=== PATIENT | female | born 1960 | race Caucasian/White ===

== ENCOUNTER 2017-07-19 13:15 | Inpatient (IN) | payer OTHER ==
--- NOTE | 2017-07-19 15:25 | EDPHY ---
HPI/HX/ROS/PE/MDM Narrative: CHIEF COMPLAINT: Headache, left-sided facial numbness HISTORY OF PRESENT ILLNESS: The patient is a 56 y/o female with a history of gastritis complaining of a headache, dizziness, and left-sided facial numbness, onset this morning when she woke up. Her left cheek, tongue, and lip felt numb but her extremities did not. Denies speech difficulties. She also had a headache in her forehead radiating to her occiput as well as mild lateral neck pain. Denies recent history of trauma, massages, or chiropractic manipulations. Per her friend, the patient thought she bit her tongue twice while sleeping last night. Denies urinary incontinence last night or history of seizures. Due to these symptoms she saw her PCP, GRETCHEN Thompson at [facility], who sent the patient to the emergency department. Currently she has a headache, facial numbness, and mild left lower extemity foot weakness. Denies taking medications for hypertension. Denies history of asthma or COPD. Denies history of PE or DVT. No fever, chills, chest pain, shortness of breath, palpitations, vomiting, diarrhea, urinary complaints, lightheadedness. A aerial photograph interpreter was used during my examination. REVIEW OF SYSTEMS: Aside from elements discussed in the HPI, a comprehensive 10-point review of systems was reviewed and is negative. PAST MEDICAL HISTORY: Gastritis, neck surgery for infected glands in [place] SOCIAL HISTORY: Friend at bedside, lives in [place], retired, stopped smoking 4 years ago VITAL SIGNS: Reviewed by me GENERAL: Well-developed, well-nourished, resting comfortably in no respiratory distress. Pleasant, conversant. Normal fluid speech. HEENT: Atraumatic. Eyes: No icterus, no injection. PERRL, EOMI. Mouth: bruising on left side of tongue, moist mucous membranes. No erythema or lesions. Neck: supple with no adenopathy. LUNGS: Clear to auscultation bilaterally, no wheezes, rhonchi or rales. CARDIAC: Regular rate and rhythm, no rubs, murmurs or gallops. ABDOMEN: Soft, nontender, nondistended, bowel sounds normal. BACK: No CVA tenderness. EXTREMITIES: No trauma. No edema. Range of motion is normal throughout. NEURO: Alert and oriented. Left-sided facial weakness on cheek and lip. Forehead is spared. Left hip flexor weakness, otherwise motor strength 5 over 5 in all other major muscle groups. Sensation diminished on left side of facte ( cheek and jawline.) SKIN: Warm and dry, no rash. PSYCHIATRIC: Normal mentation, no agitation. Portions of this note were transcribed by a behavioral medical director. I personally performed a history, physical exam, medical decision making, and confirmed accuracy of information the transcribed note. ED Course: The patient is a 56 y/o female with a history of gastritis presenting with a headache in her forehead and radiating into her occiput, dizziness, and left- sided facial numbness, onset this morning when she woke up. On exam she has left-sided facial weakness and numbness which spares her forehead, bruising on the left side of her tongue, and left hip flexor weakness. EKG, head CT, angio head and neck CT, and labs ordered. 1558: 12-LEAD EKG: Please see the full report in [facility]. My interpretation: Normal sinus rhythm with a rate of 72 1648: I reviewed patient's CT; no hemorrhage identified. Radiologist reading still pending. 1704: Spoke with Dr. Santoro, radiologist, he reports there are no intracranial abnormalities. 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 Patient will be admitted to rule out a stroke. Brain MRI ordered. 1720: Consulted with hospitalist service, Dr. Saldana accepts admission of this patient. 1730: Reassessed patient and discussed plan for admission; she is comfortable with this plan. MDM: Differential diagnoses the patient's presenting complaints was considered including but not limited to intracranial injury, TIA, ischemic cerebrovascular accident, hemorrhagic cerebrovascular accident, hypoglycemia, complex migraine, metastases, tumor, seizure, or electrolyte abnormality - Data Points Imaging Results: Imaging Impressions Head CT 07/19/17 15:47 Impression: 1. No significant intracranial abnormality seen. If symptoms worsen, additional imaging may be necessary. Findings discussed with Shari Hinojosa MD at 17:04 hour, 07/19/2017. Head CTA 07/19/17 15:47 Impression: 1. Normal CT angiogram of the neck. 2. Normal CT angiogram of the [place], as detailed above. 3. 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 Note: All calculations were performed using NASCET criteria. Findings discussed with Shari Hinojosa MD at 17:05 hour, 07/19/2017. Neck CTA 07/19/17 15:[address]: [address] angiogram of the neck. 2. Normal CT angiogram of the [place], as detailed above. 3. 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 Note: All calculations were performed using NASCET criteria. Findings discussed with Shari Hinojosa MD at 17:05 hour, 07/19/2017. Imaging: Discussed imaging studies w/ score caller Radiologist, I viewed and interpreted images myself Laboratory Results: Laboratory Results 07/19/17 15:48 07/19/17 15:48 07/19/17 07/19/17 07/19/17 15:48 15:48 15:48 WBC 11.28 10^3/uL H 10^3/uL (3.80-9.50) RBC 5.17 10^6/uL 10^6/uL (4.18-5.33) Hgb 13.9 g/dL g/dL (12.6-16.3) Hct 42.6 % % (38.0-47.0) MCV 82.4 fL fL (81.5-99.8) MCH 26.9 pg L pg (27.9-34.1) MCHC 32.6 g/dL g/dL (32.4-36.7) RDW 13.5 % % (11.5-15.2) Plt Count 307 10^3/uL 10^3/uL (150-400) MPV 11.0 fL fL (8.7-11.7) Neut % (Auto) 75.8 % H % (39.3-74.2) Lymph % (Auto) 17.7 % % (15.0-45.0) Humphreys % (Auto) 4.2 % L % (4.5-13.0) Eos % (Auto) 1.6 % % (0.6-7.6) Baso % (Auto) 0.3 % % (0.3-1.7) Nucleat RBC Rel Count 0.0 % % (0.0-0.2) Absolute Neuts (auto) 8.55 10^3/uL H 10^3/uL (1.70-6.50) Absolute Lymphs (auto) 2.00 10^3/uL 10^3/uL (1.00-3.00) Absolute Monos (auto) 0.47 10^3/uL 10^3/uL (0.30-0.80) Absolute Eos (auto) 0.18 10^3/uL 10^3/uL (0.03-0.40) Absolute Basos (auto) 0.03 10^3/uL 10^3/uL (0.02-0.10) Absolute Nucleated RBC 0.00 10^3/uL 10^3/uL (0-0.01) Immature Gran % 0.4 % % (0.0-1.1) Immature Gran # 0.05 10^3/uL 10^3/uL (0.00-0.10) PT 14.3 SEC SEC (12.0-15.0) INR 1.09 (0.83-1.16) Sodium 142 mEq/L mEq/L (135-145) Potassium 4.2 mEq/L mEq/L (3.5-5.2) Chloride 104 mEq/L mEq/L (97-110) Carbon Dioxide 27 mEq/l mEq/l (22-31) Anion Gap 11 mEq/L mEq/L (8-16) BUN 14 mg/dL mg/dL (7-23) Creatinine 0.5 mg/dL L mg/dL (0.6-1.0) Estimated GFR > 60 Glucose 96 mg/dL mg/dL (70-100) Calcium 9.4 mg/dL mg/dL (8.5-10.4) Troponin I < 0.012 ng/mL ng/mL (0.000-0.034) General Time Seen by Provider: 07/19/17 15:24 Initial Vital Signs: Initial Vital Signs Temperature (C) 36.8 C 07/19/17 13:20 Heart Rate 83 07/19/17 13:20 Respiratory Rate 18 07/19/17 13:20 Blood Pressure 164/111 H 07/19/17 13:20 O2 Sat (%) 91 L 07/19/17 13:20 O2 Delivery Mode Nasal Cannula O2 (L/minute) 2 Allergies/Adverse Reactions: No Known Allergies Allergy (Unverified 07/19/17 13:18) Home Medications: Medication Instructions Recorded Aspirin [Aspirin 81mg (*)] 81 mg PO DAILY #30 tab.chew 07/21/17 Atorvastatin Calcium [Lipitor 40 40 mg PO DAILY #30 tab 07/21/17 mg (*)] Departure - Departure Disposition: [facility] Inpatient Acute Clinical Impression: TIA (transient ischemic attack) Qualifiers: Transient cerebral ischemia type: other Qualified Code(s): G45.8 - Other transient cerebral ischemic attacks and related syndromes Condition: Fair Report Scribed for: Shari Hinojosa Report Scribed by: Dea Garay Date of Report: 07/19/17 Time of Report: 15:25
--- NOTE | 2017-07-19 16:00 | CPEKG ---
Heart Rate: 72 RR Interval: 833 P-R Interval: 204 QRSD Interval: 84 QT Interval: 404 QTC Interval: 443 P [place]: 33 QRS [place]: -9 T Wave [place]: 6 EKG Severity - ABNORMAL ECG - EKG Impression: SINUS RHYTHM EKG Impression: PROBABLE LEFT ATRIAL ABNORMALITY EKG Impression: LEFT VENTRICULAR HYPERTROPHY Electronically Signed By: Carrington Bui 23-Jul-2017 12:06:19
[2017-07-19 16:02] LABS: PLATELET COUNT 307 10^3/uL (150-400)
[2017-07-19 16:07] LABS: INR 1.09 (0.83-1.16); PROTIME(PATIENT) 14.3 SEC (12.0-15.0)
[2017-07-19] MEDS ORDERED: IOPAMIDOL (ISOVUE 370) 100 ML BTL IV ONE (16:17)
[2017-07-19] MEDS ORDERED: ACETAMINOPHEN 325 MG TAB PO PRN (17:23)
[2017-07-19] MEDS ORDERED: ONDANSETRON 4 MG/2 ML VIAL IVP PRN (17:23)
[2017-07-19] MEDS ORDERED: ONDANSETRON DISINTEGRATING 4 MG TAB PO PRN (17:23)
[2017-07-19] MEDS ORDERED: LABETALOL HCL 5 MG/ML 20 ML MDV IVP PRN (18:54)
[2017-07-19] MEDS ORDERED: CALCIUM CARBONATE 500 MG CHEWABLE TAB PO PRN (19:15)
[2017-07-19] MEDS ORDERED: D5W NS 1,000 ML IV SCH (19:30)
--- NOTE | 2017-07-19 20:08 | GHP ---
[f rep st] HISTORY AND PHYSICAL DATE OF ADMISSION: 07/19/2017 CHIEF COMPLAINT: Headache, left facial numbness and droop. History and physical was done. Interpretation by her friend. I offered a child study team director, but she declined. HISTORY OF PRESENT ILLNESS: A 56-year-old female with history of gastritis, complaining of headache, dizziness, and left-sided facial numbness. She was in her normal state of health last night. She woke up in the middle night, biting her tongue. When she woke up this morning, her left cheek, tongue and lip felt numb. She denied any slurred speech. She also had a headache on the left side of her forehead that radiated to the back. Denies any recent trauma. Denied urinary incontinence. No history of seizures. Also reports a cough for 3 months. No fevers, chills, or sweats. Along with that, she has pain on the left side of her chest, along the ribs. Denies trauma. She went to her PCP, Dr. Leyva at the [facility], who sent her to the ER. REVIEW OF SYSTEMS: I completed a 10-point review of systems. Negative, except as noted in HPI. PAST MEDICAL HISTORY: Gastritis. PAST SURGICAL HISTORY: Neck surgery for a gland in [place] 18 years ago. SOCIAL HISTORY: Lives in [place] with a friend. Cleans houses for a living. Smoked 10 years, a pack a day. Quit 4 years ago. Occasional alcohol. No illicits. FAMILY HISTORY: A brother with an NH. PHYSICAL EXAMINATION: VITAL SIGNS: Temperature 36.8, blood pressure 164/111 at admission, now 151/98, heart rate 70s, respiration 20, 91% on 3 L. GENERAL: She is obese, lying in bed, no acute distress, fatigued HEENT: PERRLA. EOMI. Oropharynx clear. CV: Regular rate, rhythm. No murmurs, gallops, rubs. LUNGS: Clear. ABDOMEN: Soft. MUSCULOSKELETAL: Tenderness over left chest and back. Tenderness along left flank and ribs. 4/5 upper extremity strength. Hip flexion decreased on the left. Decreased sensation to touch, left thigh and lower leg. NEURO: Left facial droop, numbness, left forehead, face. PSYCH: Alert and oriented x3. LABS: Sodium 142, potassium 4.2, chloride 104, carbon dioxide 27, creatinine 0.5, glucose 60, calcium 9.4, troponin less than 0.012. EKG is personally reviewed by me. Normal sinus rhythm. LVH. INR is 1, PT is 14. WBC 11, hemoglobin 13, hematocrit 42, platelets 307. Head CT: No intracranial abnormalities. Head/neck CTA. Normal angiogram of head and neck. Brain MRI pending. ASSESSMENT AND PLAN: 1. Left facial droop, numbness: concern for acute stroke, transient ischemic attack. No evidence of arrhythmia. CT head, CTA negative. MRI pending. Will monitor on telemetry. Check A1c, lipids. Neuro consult in the morning. Physical therapy, occupational therapy, speech therapy. Will need an anti- platelet before discharge. 2. Was hypertensive in the emergency room, which is not in her medical history. Will monitor overnight. Allow for permissive hypertension, unless the systolic blood pressure is greater than 220. 3. Accelerated hypertension: Again, not a known history. Will monitor, treat as stated above. 4. History of tobacco abuse, quit 4 years ago. 5. Mild leukocytosis: stress inflammation. Denies fevers or infectious symptoms. 6. Diet. Nothing per oral until speech evaluation. 7. Generalized intravenous fluids. 8. Disposition. Patient warrants observation admission, given acute neuro findings concerning for transient ischemic attack versus stroke, warranting neuro checks, telemetry, and neurology consultation. /[id number]/MODL MTDD
[2017-07-19] MEDS: PANTOPRAZOLE SODIUM 40 MG VIAL IVP SCH (21:45)
[2017-07-20] MEDS ORDERED: ACETAMINOPHEN 325 MG SUPP PR PRN (05:14)
--- NOTE | 2017-07-20 10:20 | GCON ---
[f rep st] CONSULTATION NEUROLOGIC CONSULTATION REFERRING PHYSICIAN: Radha Saldana MD CHIEF COMPLAINT: Headache and numbness in the left face and weakness of the left hand, HISTORY OF PRESENT ILLNESS: The patient is a 56-year-old woman who I am asked to see in neurologic c onsultation regarding a constellation of neurologic symptoms which began 2 nights ago predominantly. She says that she had awakened and had bitten on her tongue. When she woke yesterday morning, her l eft cheek and tongue felt a little bit numb. She denied any definite slurring of speech, but she emp hasizes today that everything simply seems slow. She also says she has a 10 out of a 10 headache whi ch is mainly on the right side of the head at this point. She also had previously described headache on the left side of her forehead radiating toward her back. She does not historically have prominen t headache issues. She says that she has had intermittent episodes about once a month where she will feel palpitations and these can be associated with a pain in the lower back which can radiate up tow jagdish the upper back or neck region. She has never really been sure what causes that. She will someti mes feel the heart racing or palpitations that might last perhaps a minute or so. She does not have any history of seizure or stroke or migraine or focal neurologic events. Since [facility] the [facility], she continues to feel she has abnormal symptoms on the left side. She came to the emergency room at the recommendation of her primary care provider yesterday. She has experienced no other new sympt oms but definitely does not feel she is back to normal. The workup so far has included a negative he ad CT, relatively unremarkable brain MRI except for nonspecific white matter change and completely pa tent intracranial and extracranial cerebral vasculature. When she was seen yesterday, she seemed to have a little bit of weakness in the left upper extremity and some decreased sensation to touch over the left leg. She was oriented. She was also thought to have a little left facial droop and numbnes s in the left face. PAST MEDICAL HISTORY: Notable for some gastritis. FAMILY HISTORY: Noncontributory. 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 Ten pack-year smoking history, but quit 4 years ago. Occasional alcohol. No illicit drug use. MEDICATIONS: The home medications were none. Here in the hospital, she is currently on Protonix, Zo raul as needed, labetalol as needed, IV fluids, and Tylenol. ALLERGIES: No drug allergies. REVIEW OF SYSTEMS: A 10-point review of systems was completed and unremarkable except for that noted above. She has not really had any fever, chills, nausea, vomiting, or diarrhea. Current. PHYSICAL EXAMINATION: VITAL SIGNS: Blood pressure is 121/77, pulse is 67, respirations 19, temperatu re 36.7. GENERAL: She is well developed, lying in the bed in no acute distress, but appears anxious . HEENT: Pupils are 3 mm and reactive. Extraocular movements are intact. No visual field loss. Th ere seems to be mild facial asymmetry with perhaps a little droop on the left but when I test her, it is relatively symmetric. No dysarthria. Everything she does is relatively slow and deliberate, and everything is a little slower on the left side than the right. She occasionally pauses to get some of her words out. She is being evaluated with a trained science interpreter assisting me. She is fu lly oriented and has good concentration and attention. NECK: Supple with no bruits or masses. CARD IAC: Regular rate and rhythm. No murmur. NEUROLOGIC: The facial sensation is perhaps a little dimi nished on the left compared to the right and motor exam reveals no definitive asymmetry of muscle pow er, but the rapid alternating movements are definitely slowed in the left hand relative to the right and in the left lower extremity it is perhaps a little weaker, but also quite subtle. Sensation is d iminished for cold perception on the left compared to the right. She can perform [id number] very s lowly on both sides with no ataxia. Reflexes 1+ and symmetric. STUDIES: Diagnostic studies are as outlined above for imaging. LDL cholesterol is 111. White count 11,000, hematocrit is 42%, platelets 307,000. Echocardiogram has been performed and is pending. Her NIH Stroke Scale would currently be 3. IMPRESSION: Total unit time of 70 minutes. The patient has clinical symptoms that would suggest rig ht hemisphere pathology producing left face, arm and leg sensory and motor changes, and generalized b radykinesia but the CT and MRI do not show definite, identifiable acute ischemia. It is possible she has had a very small stroke with a false negative MRI, but that is rather unusual. Alternatively, t his phenomena could be related to complex migraine scenario where the severe headache is a reflection of that, but her complaint of 10/10 pain is a little bit inconsistent with her general clinical appe arance. Further differential consideration would be seizure with postictal left-sided symptoms, but the story does not fit very well for that. It is hard to know what to make of the biting of her tong ue the other night. In any case, she also mentions having periods of palpitations and some back pain , so continuing cardiac monitoring seems appropriate for now. There is no evidence of large or small vessel stenosis on the angiogram, although the microvasculature is probably affected based on the MR I showing some white matter changes. PLAN: Short-term plan would be daily aspirin 81 mg daily, starting Lipitor 40 mg daily and monitorin g her heart. Unless she has complete resolution back to normal today, I would recommend 1 more day o f hospitalization for further cardiac monitoring and then set up for an outpatient Holter monitor to further look for any arrhythmias given the lack of diagnosis at this point for why this might have oc curred and also follow up on the results of echocardiogram. All of this was explained to the patient via the special events manager and she seems comfortable with this approach. /[id number]/MODL
[2017-07-20] MEDS: PANTOPRAZOLE SODIUM 40 MG VIAL IVP SCH (10:21)
[2017-07-20] MEDS: ASPIRIN 81 MG CHEWABLE TAB PO SCH (10:26)
--- NOTE | 2017-07-20 10:26 | ECHO ---
[email or web address] [address] [address] Main: [phone] Fax: [email or web address] Echocardiogram Name: JASEN PALUMBO MR#: [id number] Study Date: 07/20/2017 Study Time: 07:59 AM Date of : 1960 Age: 56 year(s) Height: 167.6 cm (66 in.) Weight: 73.03 kg (161 lb.) BSA: 1.82 m2 Gender: Female Examination: Echo Indication: Ischemic stroke Image Quality: Contrast: Requested by: Radha Saldana BP: 113 mmHg/73 mmHg Heart Rate: Rhythm: Indication: Ischemic stroke Procedure Staff Mortgage Lender: Leela Pleitez KERWIN Reading Physician: Suraj Osborne MD Requesting Provider: Conclusions: Normal size left ventricle. No LV hypertrophy. Normal global systolic LV function. The ejection fraction is estimated to be 65-70 %. No regional wall motion abnormality. Normal diastolic LV function. Normal size right ventricle. The left atrium is normal in size. An agitated saline study was performed and was negative for intracardiac shunting. The right atrium is normal in size. The mitral valve is normal in appearance and function. Trivial mitral valve regurgitation. The aortic valve is normal in appearance and function. The aortic valve is tri-leaflet. The tricuspid valve is normal in appearance and function. Mild tricuspid regurgitation is present. The pulmonary artery pressure is normal. Measurements: Chambers Valvular Assessment AV/MV Valvular Assessment TV/PV Normal Normal Normal Name Value Range Name Value Range Name Value Range Ao Nadira (2D): 3.8 cm (1.4 cm-2.6 AV meanP mmHg ( - ) TR Vmax: 2.23 mm/s ( - ) cm) MV E Vmax: 0.66 m/s ( - ) TR PGmax: 20 mmHg ( - ) IVSd (2D): 0.9 cm (0.6 cm-1.1 MV A Vmax: 0.51 m/s ( - ) syst. PAP: 25 mmHg ( - ) cm) MV E/A: 1.29 ( - ) LVDd (2D): 4.9 cm (3.9 cm-5.3 cm) LVDs (2D): 3.1 cm (2.1 cm-4 cm) Patient: JASEN PALUMBO Study Date: 07/20/2017 Page 1 of 2 07:59 AM LVPWd (2D): 0.9 cm ( - ) LVEF (MOD4): 70 % (>=55 %) EF Range: 65-70 % Continued Measurements: Chambers Valvular Assessment AV/MV Valvular Assessment TV/PV Name Value Name Value Name Value LADs: 4.4 cm MV E' Septal: 0.06 m/s CVP (est.): 5 mmHg LADs Lon.3 cm MV E/E' Septal: 10.60 LA Area: 18.6 cm2 MV E/E' Lateral: 5.60 Additional Vessels Name Value Ao Ascendin.6 cm Findings: Left Ventricle: Normal size left ventricle. No LV hypertrophy. Normal global systolic LV function. The ejection fraction is estimated to be 65-70 %. No regional wall motion abnormality. Normal diastolic LV function. Right Ventricle: Normal size right ventricle. Left Atrium: The left atrium is normal in size. An agitated saline study was performed and was negative for intracardiac shunting. Right Atrium: The right atrium is normal in size. Mitral Valve: The mitral valve is normal in appearance and function. Trivial mitral valve regurgitation. Aortic Valve: The aortic valve is normal in appearance and function. The aortic valve is tri-leaflet. Tricuspid Valve: The tricuspid valve is normal in appearance and function. Mild tricuspid regurgitation is present. The pulmonary artery pressure is normal. Pulmonic Valve: The pulmonic valve is normal in appearance and function. Trivial pulmonic valve regurgitation. Aorta: The aorta is normal. Pericardium: No pericardial effusion. (No Signature Object) Patient: JASEN PALUMBO Study Date: 07/20/2017 Page 2 of 2 07:59 AM [id number]
[2017-07-20] MEDS ORDERED: ACET/CAFFEINE/BUTA FIORICET 1 EACH TAB PO PRN (11:25)
--- NOTE | 2017-07-20 12:31 | ASMTCMCOM ---
CM Note CM Note Notes: Pt admitted for possible stroke. Ptt will likely have no DC needs. CM kellie follow as needed. Date Signed: 07/20/2017 12:30 PM Electronically Signed By:Elvia Agustin LCSW
[2017-07-20] MEDS ORDERED: PROCHLORPERAZINE MALEATE 10 MG TAB PO PRN (13:45)
[2017-07-20] MEDS: KETOROLAC 30 MG/1 ML SDV IVP PRN ×2 (14:14→20:11)
--- NOTE | 2017-07-20 17:18 | HOSPPROG ---
Hospitalist Progress Note Assessment/Plan: # Acute neurologic sx - associated with SANDRA - no significant improvement overnight MRI brain (personally reviewed and interpreted) no finding c/w stroke - LDL 111 Differential includes - stroke, complex migraine or seizure - none classic for presentation oxygen saturations 95% on 2L - cont ASA - cont Statin - cont Telemetry and monitoring # Acute Headache with photophobia - no improvement with tylenol this am will attempt abortive therapy below - IV toradol - IV benadryl - compazine # prop - lovneox # diet - regular if cleared by speech # dispo - > 2MN as requires ongoing monitoring for acute neurologic deficits I have discussed the case with RN - will attempt abortive tx for headache this afternoon Subjective: SANDRA persists Objective: Vital Signs Temp Pulse Resp BP Pulse Ox 36.4 C 62 16 124/78 H 95 07/20/17 15:26 07/20/17 15:26 07/20/17 15:26 07/20/17 15:26 07/20/17 15:26 07/19/17 07/20/17 07/21/17 05:59 05:59 05:59 Output Total 250 Balance -250 PT 14.3 SEC (12.0-15.0) 07/19/17 15:48 INR 1.09 (0.83-1.16) 07/19/17 15:48 - Physical Exam Constitutional: appears nourished Eyes: anicteric sclera Ears, Nose, Mouth, Throat: moist mucous membranes Cardiovascular: regular rate and rhythym Respiratory: no respiratory distress Gastrointestinal: normoactive bowel sounds Genitourinary: no bladder fullness Skin: warm Musculoskeletal: No asymmetric calves Neurologic: AAOx3, facial droop Psychiatric: interacting appropriately Lymph, Heme, Immunologic: no cervical LAD ICD10 Worksheet Patient Problems: Problems Problem Status Onset TIA (transient ischemic attack) Acute
--- NOTE | 2017-07-20 17:45 | PDMN ---
Medical Necessity Medical necessity: C/M review: Patient meets INPT crtieria under [facility] [place] [facility] Headaches: Acute and persistent - headache with photophobia neurologic symptoms / deficits associated with headache - numbness in the left face and weakness of the left hand, little bit of weakness of left upper extremity and some decreased sensation to touch over the left leg, little bit of left facial droop (per Neurology) requiring Neurology consult, ongoing cardiac monitoring, IV Toradol, IV Benadryl, oral Compazine, IV fluids, acute inpt PT/OT/[facility] anticipates >. 2 MN LOS for ongoing med nec for eval and TX of above.
[2017-07-21] MEDS: KETOROLAC 30 MG/1 ML SDV IVP PRN (04:54)
[2017-07-21] MEDS ORDERED: ATORVASTATIN CALCIUM 40 MG TAB PO SCH (09:00)
[2017-07-21] MEDS ORDERED: PANTOPRAZOLE SODIUM 40 MG TAB PO SCH (09:00)
[2017-07-21] MEDS: ASPIRIN 81 MG CHEWABLE TAB PO SCH (10:50)
[2017-07-21 11:41] VITALS: BP 119/83
--- NOTE | 2017-07-21 12:05 | NEUROPROG ---
Assessment: Total unit time of 15 min. The exact cause of this patient's symptoms is uncertain. Her headache is under enough control that she can be discharged safely. TIAs a reasonable diagnosis but still uncertain. Alternatively, complex migraine is possible. I would recommend discharge statin therapy as well as daily aspirin. Follow-up in [facility]. Follow up with Neurology as needed if symptoms recur. Subjective: Patient is reporting her headache is now significantly better and has a little bit of left-sided paresthesias and mild weakness but not profound at this point. Objective: Vital Signs Temp Pulse Resp BP Pulse Ox 36.3 C 75 16 119/83 H 90 L 07/21/17 11:41 07/21/17 11:41 07/21/17 11:41 07/21/17 11:41 07/21/17 11:41 Laboratory Results 07/21/17 04:56 07/20/17 07/21/17 07/22/17 05:59 05:59 05:59 Output Total 250 Balance -250 PT 14.3 SEC (12.0-15.0) 07/19/17 15:48 INR 1.09 (0.83-1.16) 07/19/17 15:48 There is very subtle left-sided weakness but generally good functioning status with a little slowness of movement. She looks comfortable. Allergies/Adverse Reactions: No Known Allergies Allergy (Unverified 07/19/17 13:18)
--- NOTE | 2017-07-21 17:16 | GDS ---
[f rep st] DISCHARGE SUMMARY DISCHARGE DIAGNOSES: Include: 1. Acute neurologic symptoms of the left face and 3rd left toe. 2. Acute headache. 3. Hyperlipidemia. 4. Gastritis. HISTORY OF PRESENT ILLNESS: A 56-year-old [place]-speaking female who presents with complaints of le ft facial numbness, droop, and headache. For details of the patient's initial presentation, please s ee the History and Physical dated 07/19/2017. CONSULTATIVE SERVICES: Include neurology. PROCEDURES: 07/19/2017: Patient had a CTA of the head and neck that showed no flow-limiting stenose s. On 07/20/2017, the patient had MRI of the brain that showed no acute ischemic abnormalities or st roke. There is deep white matter change described as nonspecific by Radiology. On 07/19/2017, adán leonard had a transthoracic echocardiogram that showed normal LV size, function, and valvular anatomy. HOSPITAL COURSE BY ISSUE: 1. Acute headache. Patient's headache was quite profound during her hospital stay. Did respond to treatment with Toradol, Benadryl, and Compazine. It remains unclear to us if this headache is highly related to her focal neurologic deficits or not. Patient will need ongoing monitoring in the outpat ient setting by her PCP and, potentially, Neurology. 2. Acute focal neurologic deficits. Patient was seen by Neurology, and it remains unclear if this p atient has had a TIA or not. Imaging did not support this diagnosis. However, her focal neurologic deficits remain only slightly improved at the time of disposition. It is additionally possible that these are related to complex migraines. Patient will need ongoing monitoring in the outpatient setti ng. Patient will be initiated empirically on aspirin daily, as well as a statin daily to treat possi ble cerebrovascular disease. Patient has been instructed to follow with her PCP, as well as with Néstor ferrari if she has recurrent symptoms. MEDICATIONS AT THE TIME OF DISPOSITION: Please reference the med rec printed 07/21/2017. FOLLOWUP APPOINTMENTS: Include: 1. With her PCP in the next 1-2 weeks for followup of her acute symptoms. 2. With Neurology, Dr. Damian, as needed for any recurrent symptoms or ongoing neurologic consult ation. PENDING STUDIES: None. I spent greater than 30 minutes in the planning and coordination of this discharge. /[id number]/MODL
== END 2017-07-21 12:45 | disposition home or self-care (01) | DRG 103 ==
LOC: OBSVTOIN 17:23 → F3N 18:35
PROVIDERS: ADMIT Internal Medicine; ATTEND Internal Medicine
DX: R51 Headache (principal); R29.810 Facial weakness; R20.0 Anesthesia of skin; R29.818 Other symptoms and signs involving the nervous system; K29.70 Gastritis, unspecified, without bleeding; I10 Essential (primary) hypertension
CPT/HCPCS: 92610-GN; 97161-GP; 97166-GO; 97535-GO; G0378; J1200; J1885; J2270; Q9967